=== PATIENT | female | born 1930 | race Caucasian/White ===

== ENCOUNTER 2016-09-16 09:49 | Inpatient (IN) | payer MEDICARE, OTHER ==
[~2016-09-16 09:49] MED LIST: ALBUTEROL I0.5 ML/EA AERO NEB; AMIODARONE HCL200 MG PO; CYCLOBENZAPRINE10 MG PO; DULCOLAX10 MG/SUPP RC; LIDODERM30 EA TP; MIRAPEX0.5 M1 PO; MOBIC7.5 MG PO; NORCO 5/3251 TAB PO; NORVASC5 M2 PO; OCUVITE TABLET1 TAB PO; OMEGA 31 CAP PO; PACERONE200 MG PO; PRILOSEC OTC20 M1 PO; PROAMATINE5 MG PO; PROZAC20 MG PO; SPIRIVA18 MCG IH; TOPAMAX25 MG PO; TRAVEL MOTION S25 MG PO; TUMS500 M1 PO; TYLENOL325 MG PO; TYLENOL650 MG PO; ULTRAM50 MG PO; XARELTO15 M1 PO; ZOFRAN ODT8 MG/TAB PO
[2016-09-16 10:13] LABS: ABG CO2 ARTERIAL 24 mmol/L (21-27); ARTERIAL BLD GAS O2 SATURATION 85 % (95-98); ARTERIAL BLOOD GAS PCO2 35 mmHg (32-45); BICARBONATE 23 mmol/L (21-28); BLOOD GAS BASE EXCESS -1 mM/L (-/+3); PH 7.42 Units (7.35-7.45)
[2016-09-16 10:16] LABS: ARTERIAL PO2 50 mmHg (70-100)
[2016-09-16] MEDS ORDERED: PROAIR HFA8.5 GM INH (10:21)
[2016-09-16] MEDS ORDERED: ALDACTONE25 M1 PO (10:22)
[2016-09-16] MEDS ORDERED: PACERONE200 M1 PO (10:22)
[2016-09-16] MEDS ORDERED: DEMADEX20 M1 PO (10:22)
[2016-09-16] MEDS ORDERED: OMEPRAZOLE20 M3 PO (10:23)
[2016-09-16 10:46] LABS: BASO % 0.2 % (0-2); EOS % 1.4 % (0-7); EOSINOPHIL ABSOLUTE COUNT 0.1 tho/cmm (0.0-0.7); HCT-HEMATOCRIT 40.6 % (34.0-49.0); HGB-HEMOGLOBIN 13.2 gm/dl (12.0-15.5); LYMPH % 31.8 % (20-45); LYMPH ABSOLUTE COUNT 1.4 tho/cmm (0.8-4.5); MCH (MEAN CORPUSCULAR HGB) 31.1 pg (28.0-32.0); MCHC MEAN CORPUSCULAR HGB CONC 32.5 % (32.0-36.0); MCV (MEAN CELL VOLUME) 95.8 fl (82.0-96.0); MEAN PLATELET VOLUME 10.5 cmc (9.4-12.4); MONO % 6.4 % (0-12); MONOCYTE ABSOLUTE COUNT 0.3 tho/cmm (0.0-1.2); NEUTROPHIL ABSOLUTE COUNT 2.6 tho/cmm (1.6-8.0); NEUTROPHIL-AUTOMATED 2.6 tho/cmm (1.6-8.0); NEUTROPHILS % 60.2 % (40-80); PLATELET COUNT 162 tho/cmm (150-450); RED BLOOD COUNT 4.24 mil/cmm (4.00-5.20); RED CELL DISTRIBUTION WIDTH 15.5 % (12.4-16.4); WHITE BLOOD COUNT 4.2 tho/cmm (4.0-10.0)
[2016-09-16] MEDS ORDERED: ANORO ELLIPTA1 EAC1 INH (10:52)
[2016-09-16] MEDS ORDERED: PRESERVISION A1 EAC5 PO (10:53)
[2016-09-16 10:57] LABS: ALB/GLOB RATIO 1.1 (0.8-2.0); ALBUMIN 3.7 g/dl (3.5-5.0); ALKALINE PHOSPHATASE 105 U/L (33-138); ALT/SGPT 29 U/L (12-78); ANION GAP 10 mmol/L (0-20); AST/SGOT 23 U/L (10-40); BILIRUBIN,TOTAL 1.5 mg/dl (0-1.5); BLOOD UREA NITROGEN 16 mg/dl (6-24); CALCIUM 8.6 mg/dl (8.5-10.5); CARBON DIOXIDE-VENOUS 28 mmol/L (22-32); CHLORIDE 110 mmol/l (96-110); CREATININE 1.24 mg/dl (0.50-1.10); GLUCOSE 122 mg/dL (70-110); POTASSIUM 4.2 mmol/L (3.7-5.1); SODIUM 144 mmol/L (135-145); eGFR VALUE FOR BLACK 46 mL/Min
[2016-09-16 11:08] LABS: URINE BILIRUBIN NEGATIVE (NEG); URINE BLOOD MODERATE (NEG); URINE GLUCOSE (UA) NEGATIVE (NEG); URINE KETONE NEGATIVE (NEG); URINE LEUKOCYTE ESTERASE NEGATIVE (NEG); URINE NITRITE NEGATIVE (NEG); URINE PROTEIN MODERATE (NEG)
[2016-09-16 11:11] LABS: PROCALCITONIN <0.05 ng/ml (0.05-0.09)
[2016-09-16 11:12] LABS: URINE APPEARANCE CLEAR; URINE COLOR YELLOW
[2016-09-16 11:18] LABS: URINE AMORPHOUS 1+; URINE MUCUS 1+; URINE WBC 0-2 /[HPF] (0-5)
[2016-09-16] MEDS ORDERED: AMIODARONE HCL200 M1 PO (11:38)
[2016-09-16 16:26] LABS: ABG CO2 ARTERIAL 23 mmol/L (21-27); ARTERIAL BLD GAS O2 SATURATION 92 % (95-98); ARTERIAL BLOOD GAS PCO2 39 mmHg (32-45); ARTERIAL PO2 67 mmHg (70-100); BICARBONATE 21 mmol/L (21-28); BLOOD GAS BASE EXCESS -3 mM/L (-/+3); PH 7.35 Units (7.35-7.45)
[2016-09-17 05:57] LABS: INR 2.2 INR (0.9-1.1); PROTHROMBIN TIME 25.9 SECONDS (9.0-13.6)
[2016-09-17 06:07] LABS: CHLORIDE 107 mmol/l (96-110); POTASSIUM 4.1 mmol/L (3.7-5.1); SODIUM 140 mmol/L (135-145)
[2016-09-17 06:11] LABS: ANION GAP 14 mmol/L (0-20); BLOOD UREA NITROGEN 17 mg/dl (6-24); CALCIUM 8.6 mg/dl (8.5-10.5); CARBON DIOXIDE-VENOUS 23 mmol/L (22-32); GLUCOSE 149 mg/dL (70-110); eGFR VALUE FOR BLACK 53 mL/Min
[2016-09-17 10:28] LABS: BASO % 0.2 % (0-2); HCT-HEMATOCRIT 37.2 % (34.0-49.0); IMMATURE GRANULOCYTES ABSOLUTE 0.01 tho/cmm (0-0.03); IMMATURE GRANULOCYTES PERCENT 0.2 % (0-0.3); LYMPH ABSOLUTE COUNT 0.4 tho/cmm (0.8-4.5); MCH (MEAN CORPUSCULAR HGB) 30.8 pg (28.0-32.0); MCHC MEAN CORPUSCULAR HGB CONC 32.3 % (32.0-36.0); MCV (MEAN CELL VOLUME) 95.4 fl (82.0-96.0); MEAN PLATELET VOLUME 11.4 cmc (9.4-12.4); MONO % 3.3 % (0-12); MONOCYTE ABSOLUTE COUNT 0.2 tho/cmm (0.0-1.2); NEUTROPHIL ABSOLUTE COUNT 4.8 tho/cmm (1.6-8.0); NEUTROPHIL-AUTOMATED 4.8 tho/cmm (1.6-8.0); NEUTROPHILS % 89.3 % (40-80); PLATELET COUNT 158 tho/cmm (150-450); RED CELL DISTRIBUTION WIDTH 15.3 % (12.4-16.4); WHITE BLOOD COUNT 5.4 tho/cmm (4.0-10.0)
[2016-09-19] MEDS ORDERED: PREDNISONE10 M1 PO (12:39)
[2016-09-19] MEDS ORDERED: LEVAQUIN750 M1 PO (12:40)
[2016-09-19] MEDS ORDERED: TYLENOL325 M2 PO (12:42)
[2016-09-19] MEDS ORDERED: MIRALAX17 G2 PO (12:43)
[2016-09-19] MEDS ORDERED: IPRAT-ALBUT 0.5-3 ML INH (14:12)
== END 2016-09-19 15:55 | DRG 190 ==
LOC: EDMED 09:49 → EMR2 13:23 → 5WE 15:10
PROVIDERS: Emergency Medicine; ADMIT Internal Medicine
DX: J44.1 Chronic obstructive pulmonary disease with (acute) exacerbation (principal); J96.21 Acute and chronic respiratory failure with hypoxia; N17.9 Acute kidney failure, unspecified; I27.2 Other secondary pulmonary hypertension; I48.0 Paroxysmal atrial fibrillation; E78.5 Hyperlipidemia, unspecified; F32.9 Major depressive disorder, single episode, unspecified; G25.81 Restless legs syndrome; I10 Essential (primary) hypertension; H35.30 Unspecified macular degeneration; I35.1 Nonrheumatic aortic (valve) insufficiency; R42 Dizziness and giddiness; Z66 Do not resuscitate; Z95.0 Presence of cardiac pacemaker
CPT/HCPCS: J0456; J0696; J2920; J2930; J7030; J7050; P9612

== ENCOUNTER 2016-09-30 09:17 | Inpatient (IN) | payer MEDICARE, OTHER ==
[~2016-09-30 09:17] MED LIST changes: +ALDACTONE25 M1 PO; +AMIODARONE HCL200 M1 PO; +ANORO ELLIPTA1 EAC1 INH; +DEMADEX20 M1 PO; +IPRAT-ALBUT 0.5-3 ML INH; +LEVAQUIN750 M1 PO; +MIRALAX17 G2 PO; +OMEPRAZOLE20 M3 PO; +PACERONE200 M1 PO; +PREDNISONE10 M1 PO; +PRESERVISION A1 EAC5 PO; +PROAIR HFA8.5 GM INH; +TYLENOL325 M2 PO
[2016-09-30] MEDS ORDERED: PRESERVISION A1 EAC5 PO (09:45)
[2016-09-30 10:11] LABS: ABG CO2 ARTERIAL 27 mmol/L (21-27); ARTERIAL BLD GAS O2 SATURATION 81 % (95-98); ARTERIAL BLOOD GAS PCO2 37 mmHg (32-45); BICARBONATE 26 mmol/L (21-28); BLOOD GAS BASE EXCESS 3 mM/L (-/+3); PH 7.46 Units (7.35-7.45)
[2016-09-30 10:13] LABS: ARTERIAL PO2 45 mmHg (70-100)
[2016-09-30] MEDS ORDERED: OCUVITE WITH L1 EACH PO (10:49)
[2016-09-30] MEDS ORDERED: OMEPRAZOLE20 M3 PO (10:49)
[2016-09-30] MEDS ORDERED: ARTIFICIAL TEAR15 M8 OP (10:49)
[2016-09-30 11:11] LABS: BASO % 0.1 % (0-2); EOS % 1.7 % (0-7); EOSINOPHIL ABSOLUTE COUNT 0.1 tho/cmm (0.0-0.7); HGB-HEMOGLOBIN 14.6 gm/dl (12.0-15.5); IMMATURE GRANULOCYTES ABSOLUTE 0.03 tho/cmm (0-0.03); IMMATURE GRANULOCYTES PERCENT 0.4 % (0-0.3); LYMPH % 16.3 % (20-45); LYMPH ABSOLUTE COUNT 1.4 tho/cmm (0.8-4.5); MCH (MEAN CORPUSCULAR HGB) 31.5 pg (28.0-32.0); MCHC MEAN CORPUSCULAR HGB CONC 32.4 % (32.0-36.0); MCV (MEAN CELL VOLUME) 97.2 fl (82.0-96.0); MEAN PLATELET VOLUME 10.1 cmc (9.4-12.4); MONO % 6.4 % (0-12); MONOCYTE ABSOLUTE COUNT 0.5 tho/cmm (0.0-1.2); NEUTROPHIL ABSOLUTE COUNT 6.2 tho/cmm (1.6-8.0); NEUTROPHIL-AUTOMATED 6.2 tho/cmm (1.6-8.0); NEUTROPHILS % 75.1 % (40-80); PLATELET COUNT 146 tho/cmm (150-450); RED BLOOD COUNT 4.63 mil/cmm (4.00-5.20); RED CELL DISTRIBUTION WIDTH 15.9 % (12.4-16.4); WHITE BLOOD COUNT 8.3 tho/cmm (4.0-10.0)
[2016-09-30 11:27] LABS: ALB/GLOB RATIO 1.2 (0.8-2.0); ALBUMIN 3.5 g/dl (3.5-5.0); ALKALINE PHOSPHATASE 75 U/L (33-138); ALT/SGPT 32 U/L (12-78); ANION GAP 12 mmol/L (0-20); AST/SGOT 21 U/L (10-40); BILIRUBIN,TOTAL 1.8 mg/dl (0-1.5); BLOOD UREA NITROGEN 18 mg/dl (6-24); CALCIUM 8.4 mg/dl (8.5-10.5); CARBON DIOXIDE-VENOUS 27 mmol/L (22-32); CHLORIDE 109 mmol/l (96-110); CREATININE 1.04 mg/dl (0.50-1.10); GLUCOSE 98 mg/dL (70-110); POTASSIUM 4.2 mmol/L (3.7-5.1); SODIUM 144 mmol/L (135-145); eGFR VALUE FOR BLACK 57 mL/Min
[2016-09-30 11:49] LABS: URINE BILIRUBIN NEGATIVE (NEG); URINE BLOOD NEGATIVE (NEG); URINE GLUCOSE (UA) NEGATIVE (NEG); URINE KETONE NEGATIVE (NEG); URINE LEUKOCYTE ESTERASE NEGATIVE (NEG); URINE NITRITE NEGATIVE (NEG); URINE PROTEIN NEGATIVE (NEG)
[2016-09-30 11:50] LABS: URINE APPEARANCE CLEAR; URINE COLOR YELLOW
[2016-09-30 12:30] LABS: PROCALCITONIN <0.05 ng/ml (0.05-0.09)
[2016-10-01 10:36] LABS: ANION GAP 13 mmol/L (0-20); BLOOD UREA NITROGEN 23 mg/dl (6-24); CALCIUM 8.5 mg/dl (8.5-10.5); CARBON DIOXIDE-VENOUS 30 mmol/L (22-32); CHLORIDE 99 mmol/l (96-110); GLUCOSE 94 mg/dL (70-110); SODIUM 138 mmol/L (135-145); eGFR VALUE FOR BLACK 36 mL/Min
[2016-10-01 10:37] LABS: CREATININE 1.51 mg/dl (0.50-1.10)
--- NOTE | 2016-10-01 14:31 | NUR ---
VIRTUAL CARE NOTE: PATIENT STATES SHE FORGOT TO ASK THE DOCTOR TODAY, ABOUT SHE FEELS LIKE HER LEFT RIB IS STICKING OUT. DENIES FALL OR INJURY AND THAT SHE NOTICED IT BEFORE SHE WAS ADMITTED TO HOSPITAL. DENIES BRUISING OR TENDERNESS. DENIES PAIN OR SOB. NO OTHER CONCERNS AT THIS TIME Jace GREENWOOD RN
[2016-10-02 06:12] LABS: ANION GAP 9 mmol/L (0-20); BLOOD UREA NITROGEN 31 mg/dl (6-24); CALCIUM 8.2 mg/dl (8.5-10.5); CARBON DIOXIDE-VENOUS 35 mmol/L (22-32); CHLORIDE 98 mmol/l (96-110); CREATININE 1.18 mg/dl (0.50-1.10); GLUCOSE 97 mg/dL (70-110); POTASSIUM 3.4 mmol/L (3.7-5.1); SODIUM 139 mmol/L (135-145); eGFR VALUE FOR BLACK 49 mL/Min
[2016-10-02] MEDS ORDERED: POTASSIUM CHLO10 ME2 PO (10:13)
[2016-10-02] MEDS ORDERED: ZESTRIL5 M1 PO (10:13)
[2016-10-02] MEDS ORDERED: LASIX40 M1 PO (10:13)
[2016-10-02] MEDS ORDERED: STOP THE FOLLOWING: (10:14)
== END 2016-10-02 11:55 | disposition home health service (06) | DRG 291 ==
LOC: EDMED 09:17 → EMR2 12:30 → 5WD 14:00
PROVIDERS: Emergency Medicine; Family Medicine; ADMIT Hospitalist
PROC: 5A09357 Assistance with Respiratory Ventilation, Less than 24 Consecutive Hours, Continuous Positive Airway Pressure (ICD-10-PCS; principal; 2016-09-30)
DX: I13.0 Hypertensive heart and chronic kidney disease with heart failure and stage 1 through stage 4 chronic kidney disease, or unspecified chronic kidney disease (principal); J96.21 Acute and chronic respiratory failure with hypoxia; I48.1 Persistent atrial fibrillation; J44.1 Chronic obstructive pulmonary disease with (acute) exacerbation; I48.91 Unspecified atrial fibrillation; Z99.81 Dependence on supplemental oxygen; I27.2 Other secondary pulmonary hypertension; G25.81 Restless legs syndrome; I50.33 Acute on chronic diastolic (congestive) heart failure; N18.3 Chronic kidney disease, stage 3 (moderate); Z95.0 Presence of cardiac pacemaker; R10.9 Unspecified abdominal pain; Z85.118 Personal history of other malignant neoplasm of bronchus and lung; H35.30 Unspecified macular degeneration; E78.5 Hyperlipidemia, unspecified; Z86.73 Personal history of transient ischemic attack (TIA), and cerebral infarction without residual deficits; Z87.891 Personal history of nicotine dependence; Z79.01 Long term (current) use of anticoagulants; F32.9 Major depressive disorder, single episode, unspecified; I07.1 Rheumatic tricuspid insufficiency; R00.1 Bradycardia, unspecified
CPT/HCPCS: G8978-GP-CI; G8979-GP-CI; J1940; J2930; J7040; J7512; P9612; Q9967

== ENCOUNTER 2016-11-25 13:05 | Emergency (ER) | payer MEDICARE, OTHER ==
[~2016-11-25 13:05] MED LIST changes: +ARTIFICIAL TEAR15 M8 OP; +LASIX40 M1 PO; +OCUVITE WITH L1 EACH PO; +POTASSIUM CHLO10 ME2 PO; +STOP THE FOLLOWING:; +ZESTRIL5 M1 PO
[2016-11-25] MEDS ORDERED: LASIX20 M1 PO (13:21)
[2016-11-25 13:59] LABS: URINE BILIRUBIN NEGATIVE (NEG); URINE BLOOD SMALL (NEG); URINE GLUCOSE (UA) NEGATIVE (NEG); URINE KETONE MODERATE (NEG); URINE LEUKOCYTE ESTERASE NEGATIVE (NEG); URINE NITRITE NEGATIVE (NEG); URINE PH 6.5 (5.0-8.0); URINE PROTEIN NEGATIVE (NEG); URINE SPECIFIC GRAVITY 1.015 (1.003-1.030)
[2016-11-25 14:00] LABS: URINE APPEARANCE CLEAR; URINE COLOR DARK YELLOW
[2016-11-25 14:06] LABS: URINE EPITHELIAL CELLS 0-2 /[HPF] (0-10); URINE MUCUS 2+; URINE WBC 0-1 /[HPF] (0-5)
[2016-11-25 14:18] LABS: BASO % 0.2 % (0-2); EOS % 0.9 % (0-7); HCT-HEMATOCRIT 40.2 % (34.0-49.0); HGB-HEMOGLOBIN 13.3 gm/dl (12.0-15.5); IMMATURE GRANULOCYTES ABSOLUTE 0.01 tho/cmm (0-0.03); IMMATURE GRANULOCYTES PERCENT 0.2 % (0-0.3); LYMPH % 26.6 % (20-45); LYMPH ABSOLUTE COUNT 1.2 tho/cmm (0.8-4.5); MCH (MEAN CORPUSCULAR HGB) 31.1 pg (28.0-32.0); MCHC MEAN CORPUSCULAR HGB CONC 33.1 % (32.0-36.0); MCV (MEAN CELL VOLUME) 94.1 fl (82.0-96.0); MEAN PLATELET VOLUME 10.4 cmc (9.4-12.4); MONO % 6.7 % (0-12); MONOCYTE ABSOLUTE COUNT 0.3 tho/cmm (0.0-1.2); NEUTROPHIL ABSOLUTE COUNT 2.9 tho/cmm (1.6-8.0); NEUTROPHIL-AUTOMATED 2.9 tho/cmm (1.6-8.0); NEUTROPHILS % 65.4 % (40-80); PLATELET COUNT 151 tho/cmm (150-450); RED BLOOD COUNT 4.27 mil/cmm (4.00-5.20); RED CELL DISTRIBUTION WIDTH 13.7 % (12.4-16.4); WHITE BLOOD COUNT 4.5 tho/cmm (4.0-10.0)
[2016-11-25] MEDS ORDERED: ULTRAM50 M1 PO (14:36)
[2016-11-25 14:37] LABS: ANION GAP 11 mmol/L (0-20); BLOOD UREA NITROGEN 14 mg/dl (6-24); CALCIUM 8.3 mg/dl (8.5-10.5); CARBON DIOXIDE-VENOUS 29 mmol/L (22-32); CHLORIDE 106 mmol/l (96-110); CREATININE 1.11 mg/dl (0.50-1.10); GLUCOSE 99 mg/dL (70-110); POTASSIUM 4.2 mmol/L (3.7-5.1); SODIUM 142 mmol/L (135-145); eGFR VALUE FOR BLACK 52 mL/Min
== END 2016-11-25 16:00 ==
LOC: EDMED 13:05
PROVIDERS: Emergency Medicine
DX: E86.0 Dehydration (principal); R42 Dizziness and giddiness; I48.91 Unspecified atrial fibrillation; I10 Essential (primary) hypertension; Z90.49 Acquired absence of other specified parts of digestive tract; Z95.0 Presence of cardiac pacemaker
CPT/HCPCS: J7030

== ENCOUNTER 2016-12-06 11:06 | Emergency (ER) | payer MEDICARE, OTHER ==
[~2016-12-06 11:06] MED LIST changes: +LASIX20 M1 PO; +ULTRAM50 M1 PO
[2016-12-06] MEDS ORDERED: VITAMIN D250000 UNI1 PO (11:42)
[2016-12-06] MEDS ORDERED: SYNTHROID25 MC1 PO (11:42)
[2016-12-06] MEDS ORDERED: ALDACTONE25 M1 PO (11:44)
[2016-12-06 11:53] LABS: BASO % 0.2 % (0-2); EOS % 0.7 % (0-7); HCT-HEMATOCRIT 41.1 % (34.0-49.0); HGB-HEMOGLOBIN 13.6 gm/dl (12.0-15.5); IMMATURE GRANULOCYTES ABSOLUTE 0.01 tho/cmm (0-0.03); IMMATURE GRANULOCYTES PERCENT 0.2 % (0-0.3); LYMPH % 19.8 % (20-45); LYMPH ABSOLUTE COUNT 1.2 tho/cmm (0.8-4.5); MCHC MEAN CORPUSCULAR HGB CONC 33.1 % (32.0-36.0); MCV (MEAN CELL VOLUME) 93.6 fl (82.0-96.0); MEAN PLATELET VOLUME 10.6 cmc (9.4-12.4); MONO % 8.9 % (0-12); MONOCYTE ABSOLUTE COUNT 0.5 tho/cmm (0.0-1.2); NEUTROPHIL ABSOLUTE COUNT 4.3 tho/cmm (1.6-8.0); NEUTROPHIL-AUTOMATED 4.3 tho/cmm (1.6-8.0); NEUTROPHILS % 70.2 % (40-80); PLATELET COUNT 156 tho/cmm (150-450); RED BLOOD COUNT 4.39 mil/cmm (4.00-5.20); RED CELL DISTRIBUTION WIDTH 13.7 % (12.4-16.4); WHITE BLOOD COUNT 6.1 tho/cmm (4.0-10.0)
[2016-12-06 12:03] LABS: URINE APPEARANCE CLEAR; URINE BILIRUBIN NEGATIVE (NEG); URINE BLOOD MODERATE (NEG); URINE COLOR YELLOW; URINE GLUCOSE (UA) NEGATIVE (NEG); URINE KETONE NEGATIVE (NEG); URINE LEUKOCYTE ESTERASE NEGATIVE (NEG); URINE NITRITE NEGATIVE (NEG); URINE PROTEIN SMALL (NEG)
[2016-12-06 12:09] LABS: ALB/GLOB RATIO 1.1 (0.8-2.0); ALBUMIN 3.6 g/dl (3.5-5.0); ALKALINE PHOSPHATASE 95 U/L (33-138); ALT/SGPT 16 U/L (12-78); ANION GAP 13 mmol/L (0-20); AST/SGOT 20 U/L (10-40); BILIRUBIN,TOTAL 1.4 mg/dl (0-1.5); BLOOD UREA NITROGEN 15 mg/dl (6-24); CALCIUM 8.7 mg/dl (8.5-10.5); CARBON DIOXIDE-VENOUS 26 mmol/L (22-32); CHLORIDE 107 mmol/l (96-110); CREATININE 0.99 mg/dl (0.50-1.10); GLUCOSE 115 mg/dL (70-110); POTASSIUM 4.1 mmol/L (3.7-5.1); SODIUM 142 mmol/L (135-145); eGFR VALUE FOR BLACK 60 mL/Min
[2016-12-06 12:14] LABS: URINE EPITHELIAL CELLS 0 /[HPF] (0-10); URINE MUCUS 1+; URINE RBC 0 /[HPF] (0-5); URINE WBC RARE /[HPF] (0-5)
== END 2016-12-06 15:34 ==
LOC: EDMED 11:06
PROVIDERS: Emergency Medicine
DX: E86.0 Dehydration (principal); R20.2 Paresthesia of skin; R53.1 Weakness; I48.91 Unspecified atrial fibrillation; I13.0 Hypertensive heart and chronic kidney disease with heart failure and stage 1 through stage 4 chronic kidney disease, or unspecified chronic kidney disease; N18.9 Chronic kidney disease, unspecified; I50.9 Heart failure, unspecified; J44.9 Chronic obstructive pulmonary disease, unspecified; Z95.0 Presence of cardiac pacemaker; Z79.51 Long term (current) use of inhaled steroids; Z79.899 Other long term (current) drug therapy
CPT/HCPCS: J7030; P9612

== ENCOUNTER 2017-03-14 14:25 | Emergency (ER) | payer MEDICARE, OTHER ==
[~2017-03-14] VITALS: Ht 177.8 cm; Wt 71.7 kg
[~2017-03-14 14:25] MED LIST changes: +SYNTHROID25 MC1 PO; +VITAMIN D250000 UNI1 PO
[2017-03-14 16:41] LABS: BASO % 0.2 % (0-2); EOS % 1.5 % (0-7); EOSINOPHIL ABSOLUTE COUNT 0.1 tho/cmm (0.0-0.7); HCT-HEMATOCRIT 42.3 % (34.0-49.0); HGB-HEMOGLOBIN 13.8 gm/dl (12.0-15.5); LYMPH % 25.9 % (20-45); LYMPH ABSOLUTE COUNT 1.2 tho/cmm (0.8-4.5); MCH (MEAN CORPUSCULAR HGB) 30.3 pg (28.0-32.0); MCHC MEAN CORPUSCULAR HGB CONC 32.6 % (32.0-36.0); MCV (MEAN CELL VOLUME) 92.8 fl (82.0-96.0); MEAN PLATELET VOLUME 10.8 cmc (9.4-12.4); MONO % 9.5 % (0-12); MONOCYTE ABSOLUTE COUNT 0.4 tho/cmm (0.0-1.2); NEUTROPHIL ABSOLUTE COUNT 2.9 tho/cmm (1.6-8.0); NEUTROPHIL-AUTOMATED 2.9 tho/cmm (1.6-8.0); NEUTROPHILS % 62.9 % (40-80); PLATELET COUNT 163 tho/cmm (150-450); RED BLOOD COUNT 4.56 mil/cmm (4.00-5.20); RED CELL DISTRIBUTION WIDTH 14.4 % (12.4-16.4); WHITE BLOOD COUNT 4.6 tho/cmm (4.0-10.0)
[2017-03-14 16:53] LABS: ANION GAP 10 mmol/L (0-20); BLOOD UREA NITROGEN 13 mg/dl (6-24); CALCIUM 8.8 mg/dl (8.5-10.5); CARBON DIOXIDE-VENOUS 31 mmol/L (22-32); CHLORIDE 105 mmol/l (96-110); CREATININE 1.31 mg/dl (0.50-1.10); GLUCOSE 101 mg/dL (70-110); SODIUM 142 mmol/L (135-145); eGFR VALUE FOR BLACK 43 mL/Min
[2017-03-14 16:55] LABS: POTASSIUM 3.9 mmol/L (3.7-5.1)
[2017-03-14 17:47] LABS: URINE BILIRUBIN NEGATIVE (NEG); URINE BLOOD MODERATE (NEG); URINE GLUCOSE (UA) NEGATIVE (NEG); URINE KETONE NEGATIVE (NEG); URINE LEUKOCYTE ESTERASE POSITIVE (NEG); URINE NITRITE NEGATIVE (NEG); URINE PROTEIN NEGATIVE (NEG)
[2017-03-14 17:50] LABS: URINE APPEARANCE CLEAR; URINE COLOR YELLOW
[2017-03-14 18:01] LABS: URINE RBC 0-3 /[HPF] (0-5)
[2017-03-14] MEDS ORDERED: XARELTO15 M1 PO (18:25)
[2017-03-14] MEDS ORDERED: DEMADEX20 M1 PO (18:26)
== END 2017-03-14 18:40 ==
LOC: EDMED 14:25
PROVIDERS: Nurse Practitioner Family
DX: R10.9 Unspecified abdominal pain (principal); K59.00 Constipation, unspecified; I48.91 Unspecified atrial fibrillation; J44.9 Chronic obstructive pulmonary disease, unspecified; Z85.118 Personal history of other malignant neoplasm of bronchus and lung; Z90.89 Acquired absence of other organs; Z87.891 Personal history of nicotine dependence; Z79.51 Long term (current) use of inhaled steroids; Z79.899 Other long term (current) drug therapy